=== PATIENT | male | born 1970 | race Caucasian/White ===

== ENCOUNTER 2020-10-30 15:41 | Emergency (ER) | payer MEDICARE ==
[~2020-10-30 15:41] MED LIST: FLEXERIL10 MG PO; IBUPROFEN800 MG PO
[2020-10-30] MEDS ORDERED: PERCOCET 5-3251 EACH PO (17:46)
== END 2020-10-30 18:25 | disposition home or self-care (01) ==
LOC: FER 15:41
DX: S52.122A Displaced fracture of head of left radius, initial encounter for closed fracture (principal); W11.XXXA Fall on and from ladder, initial encounter; Y92.009 Unspecified place in unspecified non-institutional (private) residence as the place of occurrence of the external cause
CPT/HCPCS: 73060; 73080; 73090; 73110

== ENCOUNTER 2021-01-25 22:28 | Emergency (ER) | payer MEDICARE ==
[~2021-01-25 22:28] MED LIST changes: +PERCOCET 5-3251 EACH PO
[2021-01-25 23:00] LABS: BASOPHIL 0.4 % (0-2); EOSINOPHIL 0 % (0-5); HGB 15.9 g/dl (13.2-18.0); MCHC 36.1 g/dL (32.0-36.0); MCV 85.8 fL (78.0-100.0); MONOCYTE 10.6 % (0-12); MPV 9.4 fL (6.0-9.5); NEUTROPHIL 72.6 % (41-80); NRBC 0; PLT 218 K/uL (150-400); RBC 5.13 M/uL (4.70-6.00); RDW 12.3 % (11.5-14.0); WBC 8.5 K/uL (4.0-10.5)
[2021-01-25 23:05] LABS: INR 1.16 (0.9-1.2); PROTHROMBIN TIME 14.2 SECONDS (11.8-13.4); PTT 30.8 SECONDS (24.4-34.7)
[2021-01-25 23:16] LABS: BILIRUBIN - TOTAL 0.8 mg/dL (0.2-1.0); GLOBULIN (CALCULATION) 4.1 g/dL; POTASSIUM 3.8 mmol/L (3.5-5.1); TOTAL PROTEIN 8.1 g/dL (6.4-8.2)
[2021-01-26] MEDS ORDERED: PROTONIX 40MG T40 MG PO (01:38)
[2021-01-26] MEDS ORDERED: CARAFATE1 GM PO (01:38)
[2021-01-26] MEDS ORDERED: NORCO 5-325 TA1 EACH PO (01:38)
== END 2021-01-26 01:50 | disposition home or self-care (01) ==
LOC: FER 22:28
PROVIDERS: Emergency Medicine Emergency Medical Services
DX: R10.13 Epigastric pain (principal); R07.89 Other chest pain; R11.0 Nausea; I10 Essential (primary) hypertension
CPT/HCPCS: 36415; 71045; 80053; 83690; 84484; 85025; 85379; 85610; 85730; 87339; 93005

== ENCOUNTER 2021-01-28 16:50 | Emergency (ER) | payer OTHER ==
[~2021-01-28 16:50] MED LIST changes: +CARAFATE1 GM PO; +NORCO 5-325 TA1 EACH PO; +PROTONIX 40MG T40 MG PO
[2021-01-28 19:56] LABS: BASOPHIL 0.5 % (0-2); EOSINOPHIL 0.3 % (0-5); HCT 45.3 % (42.0-52.0); HGB 16.1 g/dl (13.2-18.0); LYMPHOCYTE 19.8 % (15-48); MCH 30.4 pg (25.0-31.0); MCHC 35.5 g/dL (32.0-36.0); MCV 85.5 fL (78.0-100.0); MPV 9.3 fL (6.0-9.5); NEUTROPHIL 68.9 % (41-80); NRBC 0; PLT 288 K/uL (150-400); RDW 12.2 % (11.5-14.0); WBC 8.7 K/uL (4.0-10.5)
[2021-01-28 20:15] LABS: BUN/CREAT RATIO (CALC) 15.8 RATIO; CREATININE 1.01 mg/dL (0.67-1.17); GLOBULIN (CALCULATION) 4.2 g/dL; POTASSIUM 3.8 mmol/L (3.5-5.1); TOTAL PROTEIN 8.2 g/dL (6.4-8.2)
[2021-01-28] MEDS ORDERED: BENTYL10 MG PO (21:30)
== END 2021-01-28 21:40 | disposition home or self-care (01) ==
LOC: FER 16:50
PROVIDERS: Emergency Medicine
DX: K20.90 Esophagitis, unspecified without bleeding (principal)
CPT/HCPCS: 36415; 71250; 80053; 83690; 85025; C9113; J7030; Q9963